=== PATIENT | female | born 1960 | race Hispanic/Latino ===

== ENCOUNTER → 2022-05-06 | Outpatient (CLI) | payer OTHER ==
[2022-05-06 15:56] LABS: URIC ACID 5.5 mg/dL (2.6-7.2)
[2022-05-06 16:06] LABS: CRP QUANTITATIVE < 2.00 mg/L (0.00-9.0)
== END | disposition home or self-care (01) ==
LOC: LAB 14:09
PROVIDERS: ATTEND Internal Medicine
DX: M06.4 Inflammatory polyarthropathy (principal)
CPT/HCPCS: 36415; 84550; 85651; 86140; 86200; 86431; 86812